=== PATIENT | male | born 1995 | race Caucasian/White ===

== ENCOUNTER 2019-08-07 23:28 | Emergency (ER) | payer BC, SELFPAY | END 2019-08-08 01:25 | disposition home or self-care (01) | PROVIDERS: Emergency Provider Physician Assistant; Visit Provider Physician Assistant | DX: S01.01XA Laceration without foreign body of scalp, initial encounter (principal); S16.1XXA Strain of muscle, fascia and tendon at neck level, initial encounter; S52.614A Nondisplaced fracture of right ulna styloid process, initial encounter for closed fracture; V86.69XA Passenger of other special all-terrain or other off-road motor vehicle injured in nontraffic accident, initial encounter | CPT/HCPCS: 12001; 29125; 72040; 73110; 99283 ==